=== PATIENT | female | born 1995 | race Caucasian/White ===

== ENCOUNTER 2016-05-14 08:53 | Emergency (ER) | payer MEDICAID ==
[2016-05-14 09:00] VITALS: RESP 16; O2SAT 97
--- NOTE | 2016-05-14 09:13 | EDPHY ---
General Narrative: CHIEF COMPLAINT: Right foot pain HISTORY OF PRESENT ILLNESS: walking up a set of stairs last night when she tripped, striking the right foot along the edge of the stair. She did note an injury along the right lateral aspect of the foot and the toes. No inversion or eversion injury. No hyper dorsiflexion or plantar flexion injury. Pain is primarily over the midfoot, worse over the lateral aspect of the right midfoot. There is no pain of the heel. No ankle tenderness. No rodrigues or knee pain. Moderate to severe pain. Worse with any palpation or weight-bearing. Improves at rest. It radiates up into the ankle. No lacerations or abrasions. No other associated complaints or modifying factors. PRIOR ORTHO INJURIES: None ESTABLISHED ORTHOPEDIST: none REVIEW OF SYSTEMS: Ten systems reviewed and are negative unless otherwise noted in the HPI EXAMINATION General Appearance: Alert, no distress Head: normocephalic, atraumatic Eyes: Pupils equal and round, no conjunctival pallor or injection Respiratory: No dyspnea or retractions. No distress Cardiovascular: Pulses normal throughout with symmetric DP and PT pulses are 2 +. Brisk cap refill all toes of the affected foot Back: non-tender, no bony abnormalities Neurological: A&O, sensory symmetric, strength symmetric Skin: Warm and dry, no rash. No laceration or abrasion. Mild contusion of the right 5th metatarsal. Extremities: Tenderness to palpation of the right mid foot over the 5th metatarsal. No deformity or crepitus. No tenderness of the right heel or ankle mortise. No tenderness of the right proximal fibula. Range of motion about the ankle and knee on the right is within normal limits and symmetric to the left. DIFFERENTIAL DIAGNOSES: Including but not limited to Contusion, sprain, strain, fracture, dislocation MDM: acute right midfoot tenderness, primarily over the 5th metatarsal. There was blunt trauma to this. She has difficulty ambulating thus I have ordered x-ray. No signs of trauma elsewhere. 9:30 a.m. x-ray has been reviewed by me has no acute fracture dislocation. Await for the official radiology report. Plan for postop shoe and crutches and referral to Orthopedics for definitive care. Weightbearing as tolerated, non weight- bearing if painful. 9:35 a.m. x-ray has been read as a proximal, equivocal fracture of the right 4th metatarsal involving the articular surface. I did discuss this with the patient. Due to the nature of the fracture will place her in a Jesse boot and provide crutches. She is to remain nonweightbearing on this until she sees Orthopedics for definitive care. We did discuss ice, elevation, anti- inflammatories and short course of pain medication. In addition I will provide a work note to allow her to have less ambulatory workload until seen by Orthopedics. Patient is comfortable with this plan and discharged home neurovascularly intact post [place] boot. ED Precautions: Worsening pain. Erythema, edema, cyanosis, pallor, paresthesia or anesthesia. SUPERVISION: This patient was independently evaluated without the aide of supervising physician. - History Smoking Status: Current some day smoker - Objective Vital Signs: Initial Vital Signs Temperature (C) 98.1 F 05/14/16 08:55 Heart Rate 79 05/14/16 08:55 Respiratory Rate 16 05/14/16 08:55 Blood Pressure 130/73 H 05/14/16 08:55 O2 Sat (%) 97 05/14/16 08:55 O2 Delivery Mode Room Air Allergies/Adverse Reactions: No Known Allergies Allergy (Unverified 05/14/16 08:55) Home Medications: Medication Instructions Recorded IBUPROFEN 05/14/16 traMADol [Ultram 50 mg (*)] 50 mg PO Q4 PRN #20 tab 05/14/16 Departure - Departure Disposition: Home, Routine, Self-Care Clinical Impression: Foot pain, right, Metatarsal stress fracture of right foot Condition: Good Instructions: Foot Sprain (ED) Additional Instructions: Nonweightbearing until seen by Orthopedics. Jesse boot while ambulatory with crutches. Ice, ibuprofen and pain medication as prescribed as needed. Return to ER for worsening pain, numbness or tingling, increasing swelling of the foot, change in coloration of the foot, weakness of the toes Referrals: NONE *PRIMARY CARE P,. [Primary Care Provider] - As per Instructions Brent Connor MD [Medical Doctor] - As per Instructions Stand Alone Forms: Work Limited Duty Prescriptions: traMADol [Ultram 50 mg (*)] 50 mg PO Q4 PRN #20 tab PRN Reason: Pain, Moderate
--- NOTE | 2016-05-14 09:33 | DX ---
Right Foot , Three History: Midfoot pain, post trauma, jammed foot into floor. Findings: Possible small proximal medial corner fracture at the base of the fourth metacarpal tarsal versus overlapping lucency from other bone margins. Alignment remains anatomic. Overall mineralizatio n is normal. Impression: Equivocal proximal articular surface fracture, fourth metatarsal. If it is clinically imp ortant to define this area accurately, noncontrast CT would be definitive.
[2016-05-14 09:55] VITALS: BP 119/80; PULSE 74; TEMP 97.2
== END 2016-05-14 09:55 | disposition home or self-care (01) ==
DX: S92.341A Displaced fracture of fourth metatarsal bone, right foot, initial encounter for closed fracture (principal); F17.200 Nicotine dependence, unspecified, uncomplicated; W18.49XA Other slipping, tripping and stumbling without falling, initial encounter; Y93.01 Activity, walking, marching and hiking
CPT/HCPCS: L4386

== ENCOUNTER 2016-07-29 00:57 | Emergency (ER) | payer MEDICAID ==
[2016-07-29 01:05] VITALS: TEMP 97.7; O2SAT 95
--- NOTE | 2016-07-29 02:22 | EDPHY ---
H & P Stated Complaint: CYST ON TOP OF BUTTOCK Time Seen by Provider: 07/29/16 01:33 HPI/ROS: Chief Complaint: Bump on back HPI: 20-year-old female presenting with several days of worsening small bump above her buttocks. It is red. It is tender. Does not have a history of the same. No fevers or chills. No abdominal pain. No rectal pain. ROS: 10 point Review of Systems is negative except as noted in the HPI. PMH: None Medications: None Allergies none Social History: No smoking, no alcohol, no recreational drug use Family History: non-contributory Physical Exam: Gen: Awake, Alert, No Distress HEENT: Nose: no rhinorrhea Eyes: PERRLA, EOMI Mouth: Moist mucosa Neck: Supple, no JVD Chest: nontender, lungs clear to auscultation Heart: S1, S2 normal, no murmur Abd: Soft, non-tender, no guarding Back: no CVA tenderness, no midline tenderness there is a fluctuant mass on the top of her gluteal fold consistent with a pilonidal abscess Ext: no edema, non-tender Skin: no rash Neuro: CN II-XII intact, Sensation grossly intact, Strength 5/5 in bilateral upper and lower extremities - Personal History LMP (Females 10-55): 15-21 Days Ago Current Tetanus/Diphtheria Vaccine: Yes Current Tetanus Diphtheria and Acellular Pertussis (TDAP): Yes - Medical/Surgical History Hx Asthma: No Hx Chronic Respiratory Disease: No Hx Diabetes: No Hx Cardiac Disease: No Hx Renal Disease: No Hx Cirrhosis: No Hx Alcoholism: No Hx HIV/AIDS: No Hx Splenectomy or Spleen Trauma: No Other PMH: tooth implant; FX FOOT - Social History Smoking Status: Current some day smoker Constitutional: Initial Vital Signs Temperature (C) 36.5 C 07/29/16 01:02 Heart Rate 57 L 07/29/16 01:02 Respiratory Rate 16 07/29/16 01:02 Blood Pressure 111/88 H 07/29/16 01:02 O2 Sat (%) 95 07/29/16 01:02 O2 Delivery Mode Room Air,Humidified Face Tent Allergies/Adverse Reactions: No Known Allergies Allergy (Unverified 07/29/16 01:04) Home Medications: Medication Instructions Recorded NK [No Known Home Meds] 07/29/16 Medical Decision Making Procedures: Procedure: Abscess drainage. The patient's abscess was located on the pilonidal region of the buttocks. I obtained verbal consent from the patient to drain the abscess who was informed about the possibility of bleeding and pain. The abscess was incised with a scalpel and a large amount of purulent drainage was expressed. I irrigated the wound and placed some packing. The patient tolerated the procedure well. The procedure was performed by myself. Departure - Departure Disposition: Home, Routine, Self-Care Clinical Impression: Pilonidal abscess Condition: Good Instructions: Pilonidal Cyst (ED) Additional Instructions: You may take hydrocodone as needed for pain. Follow up at [facility] in 2 days for reassessment and packing removal. Return to the emergency depart for increasing pain, fevers, chills, spreading redness, or any other concerns. Referrals: NONE *PRIMARY CARE P,. [Primary Care Provider] - As per Instructions [facility] [Clinic] - As per Instructions
[2016-07-29] MEDS ORDERED: HYDROCOD/APAP 5/325 PREPACK#6 BTL TAKEHOME ONE (02:37)
[2016-07-29 02:49] VITALS: BP 124/53; PULSE 67; RESP 14
== END 2016-07-29 02:48 | disposition home or self-care (01) ==
PROC: 0J993ZZ Drainage of Buttock Subcutaneous Tissue and Fascia, Percutaneous Approach (ICD-10-PCS; principal; 2016-07-29)
DX: L05.01 Pilonidal cyst with abscess (principal); F17.200 Nicotine dependence, unspecified, uncomplicated

== ENCOUNTER 2016-08-01 12:22 | Emergency (ER) | payer MEDICAID ==
[2016-08-01 12:28] VITALS: BP 110/69; PULSE 72; RESP 20; TEMP 97.3; O2SAT 98
--- NOTE | 2016-08-01 12:41 | EDPHY ---
H & P Time Seen by Provider: 08/01/16 12:33 HPI/ROS: CHIEF COMPLAINT: Recheck pilonidal cyst HISTORY OF PRESENT ILLNESS: 20-year-old female seen emergency department 3 days ago for complaints of pilonidal cyst at which time she had incision and drainage and told to return for recheck. PHYSICAL EXAM (Prior to examination, patient consented to physical exam, hands were washed and my usual and customary physical exam procedures followed) 1) GENERAL: Well-developed, well-nourished, alert and oriented. Appears to be in no acute distress. 2) HEAD: Normocephalic 3) HEENT: sclera anicteric 4) LUNGS: Breathing comfortably. 5) SKIN: the area at the cleft of the patient's buttock is packed, packing removed. Area appears to be healing appropriately with no new signs of infection, no fluctuance no further areas of drainage. No extension to the perianal region. Smoking Status: Current some day smoker Constitutional: Initial Vital Signs Temperature (C) 36.3 C 08/01/16 12:25 Heart Rate 72 08/01/16 12:25 Respiratory Rate 20 08/01/16 12:25 Blood Pressure 110/69 08/01/16 12:25 O2 Sat (%) 98 08/01/16 12:25 O2 Delivery Mode Room Air Allergies/Adverse Reactions: No Known Allergies Allergy (Verified 08/01/16 12:25) Home Medications: Medication Instructions Recorded [place] 5/325 (*) 08/01/16 MDM/Departure - MDM ED Course/Re-evaluation: This area is healing well. No indication for further incision and drainage or antibiotics at this time. Given the name of general surgeon for follow-up in the future. Usual and customary wound precautions and instructions provided. - Depart Disposition: Home, Routine, Self-Care Clinical Impression: Pilonidal cyst Condition: Good Instructions: Pilonidal Cyst (ED) Referrals: Shaw Dunn MD [Medical Doctor] - 5-7 days, call for appt. (Dr. Shaw Dunn is a general surgeon)
== END 2016-08-01 12:47 | disposition home or self-care (01) ==
DX: L05.01 Pilonidal cyst with abscess (principal); F17.200 Nicotine dependence, unspecified, uncomplicated
CPT/HCPCS: G0463

== ENCOUNTER 2016-09-25 20:17 | Emergency (ER) | payer MEDICAID ==
[2016-09-25] MEDS ORDERED: LET GEL TOPICAL 1 EA SYR TP ONE ×2 (21:02→21:03)
--- NOTE | 2016-09-25 21:18 | EDPHY ---
H & P Stated Complaint: R leg laceration hiking HPI/ROS: CHIEF COMPLAINT: Leg laceration HISTORY OF PRESENT ILLNESS: This is a 20-year-old student to cut her leg while hiking in [place] yesterday. She has been working hard to keep the wound clean since that occurred. She denies any associated numbness or weakness. She is not certain about her tetanus status. REVIEW OF SYSTEMS: A ten point review of systems was performed and is negative with the exception of the items mentioned in the HPI. - Personal History LMP (Females 10-55): 22-28 Days Ago Current Tetanus/Diphtheria Vaccine: No - Medical/Surgical History Hx Asthma: No Hx Chronic Respiratory Disease: No Hx Diabetes: No Hx Cardiac Disease: No Hx Renal Disease: No Hx Cirrhosis: No Hx Alcoholism: No Hx HIV/AIDS: No Hx Splenectomy or Spleen Trauma: No Other PMH: PSHx: tooth implant; FX FOOT. PMHx: denies - Social History Smoking Status: Current some day smoker Drug Use: None Additional Social History: She is a University student. - Physical Exam Exam: General Appearance: Alert. Vital signs reviewed. A focused exam was performed. Respiratory: Lungs are clear to auscultation. Cardiovascular: Regular rate and rhythm; no murmur, rub, or gallop. Skin: Warm and dry, no rashes on exposed skin, normal color. Extremities: 1.5 cm linear laceration, horizontally oriented, just distal to her right knee. The wound is clean. No active bleeding. Full active range of motion of the right knee. Neurovascularly intact. Neurological: Alert and oriented. Moving all four extremities easily and equally. Sensation is intact to light touch over the right lower extremity. Psychiatric: Normal affect. Constitutional: Initial Vital Signs Temperature (C) 36.9 C 09/25/16 20:36 Heart Rate 71 09/25/16 20:36 Respiratory Rate 16 09/25/16 20:36 Blood Pressure 110/87 H 09/25/16 20:36 O2 Sat (%) 98 09/25/16 20:36 O2 Delivery Mode Room Air Allergies/Adverse Reactions: No Known Allergies Allergy (Verified 08/01/16 12:25) Home Medications: Medication Instructions Recorded NK [No Known Home Meds] 09/25/16 Medical Decision Making Procedures: Procedure: Laceration repair. Verbal consent was obtained from the patient. The 1.5 cm laceration on the lower right leg was anesthetized in the usual fashion. The wound was irrigated , draped and explored to its base with a gloved finger. There were no deep structures involved. No tendon or muscle injury was identified. The wound was repaired with 4- 0 nylon, 3 interrupted stitches. The wound repair was single layer. The procedure was performed by myself. ED Course/Re-evaluation: This laceration occurred yesterday but the wound appears clean. After discussion with the patient we decided that I would go ahead and close the wound. She understands that there is a risk of infection. She will watch closely for any signs of infection. After consideration she has also determined that her tetanus is up-to-date, which seems likely given her age. Differential Diagnosis: This is a simple laceration with no evidence of nerve, muscle, or vascular injury. There are no signs of infection. No other injuries identified. - Data Points Medications Given: Discontinued Medications Tetracaine/Epinephrine/Lidocaine (Let Gel Topical) 1 ea TP EDNOW ONE Stop: 09/25/16 21:04 Last Admin: 09/25/16 21:04 Dose: 1 ea Departure - Departure Disposition: Home, Routine, Self-Care Clinical Impression: Laceration Condition: Good Instructions: Laceration (ED) Additional Instructions: As we discussed, there is some danger of infection from closing this laceration. However, it looks clean and dry and I feel that you can watch carefully for signs of infection--fever, redness, warmth, purulent drainage, increasing pain. If you have any concerns about of infection you should return immediately. The stitches should be taken out in 10 days. Referrals: [facility] [Outside] - As per Instructions
[2016-09-25 22:05] VITALS: BP 112/78; PULSE 74; RESP 18; TEMP 97.5; O2SAT 96
== END 2016-09-25 22:05 | disposition home or self-care (01) ==
PROC: 0HQKXZZ Repair Right Lower Leg Skin, External Approach (ICD-10-PCS; principal; 2016-09-25)
DX: S81.811A Laceration without foreign body, right lower leg, initial encounter (principal); F17.200 Nicotine dependence, unspecified, uncomplicated; X58.XXXA Exposure to other specified factors, initial encounter; Y93.01 Activity, walking, marching and hiking

== ENCOUNTER 2016-10-08 01:26 | Emergency (ER) | payer MEDICAID ==
[2016-10-08 01:32] VITALS: BP 116/90; PULSE 93; RESP 16; TEMP 97.5; O2SAT 94
--- NOTE | 2016-10-08 01:45 | EDPHY ---
H & P Stated Complaint: Pt tripped and hit head on car- lac on forehead/abrasion on knee HPI/ROS: HPI CHIEF COMPLAINT: Alcohol intoxication, head laceration HISTORY OF PRESENT ILLNESS: This patient 21-year-old female, otherwise healthy no medical problems, does not take any daily medications she presents emergency room by private vehicle with her roommate after great encouragement to come to the emergency room as she has a forehead laceration. 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 She decided after leaving the republican that she would get up on a car jump from 1 car to another. She fell off the car with head strike against the ground sustaining a right forehead laceration. Upon arrival here in the emergency room she is intoxicated smells of alcohol, slurring her speech. Horizontal beating nystagmus consistent with acute alcohol intoxication. Roommate at bedside. Unsure there is LOC. No vomiting. Past Medical History: Denies medical history Past Surgical History: Denies recent surgical history Social History: Alcohol this evening, denies illicit drugs or tobacco. [employer] student. Family History: Noncontributory ROS REVIEW OF SYSTEMS: A comprehensive 10 point review of systems is otherwise negative aside from elements mentioned in the history of present illness. Exam Constitutional smells of alcohol, intoxicated, triage nursing summary reviewed , vital signs reviewed, awake/alert. Eyes normal conjunctivae and sclera, EOMI, PERRLA. HENT head/neck: Neck atraumatic no midline cervical spine pain no step-offs. Right forehead 3 cm laceration present. moist mucus membranes, no epistaxis, neck supple/ no meningismus, no raccoon eyes. Respiratory clear to auscultation bilaterally, normal breath sounds, no respiratory distress, no wheezing. Cardiovascular rate normal, regular rhythm, no murmur, no edema, distal pulses normal. Gastrointestinal soft, non-tender, no rebound, no guarding, normal bowel sounds, no distension, no pulsatile mass. Genitourinary no CVA tenderness. Musculoskeletal no midline vertebral tenderness, full range of motion, no calf swelling, no tenderness of extremities, no meningismus, good pulses, neurovascularly intact. Skin pink, warm, & dry, no rash, skin atraumatic. Neurologic awake, alert and oriented x 3, AAOx3, moves all 4 extremities equally, motor intact, sensory intact, CN II-XII intact, normal cerebellar, normal vision, slurring of speech. Psychiatric normal mood/affect. Heme/Lymph/Immune no lymphadenopathy. Differential Diagnosis: Includes but is not limited acute alcohol intoxication , closed head injury, intracranial bleed, skull fracture, forehead laceration. Medical Decision Making: Plan for this patient CT head without contrast for trauma given alcohol intoxication and fall. Patient need the laceration repaired under sterile conditions and cleaned out. Patient tells me her stay tetanus shot is up-to-date Re-evaluation: Laceration Repair Procedure: Verbal Consent was obtained, Under sterile conditions, The patient had lidocaine with epinephrine used approximately 4ccs to local anesthetize the right forehead laceration 3 cm. Laceration. The wound was copiously irrigated with sterile fluid, the wound was explored for foreign bodies there were none visualized, the wound was explored with a sterile glove to the base. There are no deep structures involved, including no arterial injury. THREE 6.O prolene interrupted Sutures were placed in this patient's laceration. She had good close approximation of the wound edges. She Tolerated this well. Patient understands return emergency room if she develops any vomiting severe headache questions concerns about her sutures. Sutures need to be removed in [address] scan of the head without IV contrast for trauma The results of the study are negative for acute traumatic injury. The study was read by Dr. Upton. I viewed the images myself on the PACS system. [id number]: Patient resting no acute distress. CT unremarkable. Reason for CT head without contrast is alcohol intoxication, head trauma, hit head on concrete sustaining a head laceration. She understands no aspirin. Return emergency room if any worsening symptoms including severe headache, vomiting or fever. Source: Patient - Personal History LMP (Females 10-55): 22-28 Days Ago Current Tetanus/Diphtheria Vaccine: Unsure Current Tetanus Diphtheria and Acellular Pertussis (TDAP): Unsure Tetanus Vaccine Date: <10 years - Medical/Surgical History Hx Asthma: No Hx Chronic Respiratory Disease: No Hx Diabetes: No Hx Cardiac Disease: No Hx Renal Disease: No Hx Cirrhosis: No Hx Alcoholism: No Hx HIV/AIDS: No Hx Splenectomy or Spleen Trauma: No Other PMH: PSHx: tooth implant; FX FOOT. PMHx: denies - Social History Smoking Status: Current some day smoker Constitutional: Initial Vital Signs Temperature (C) 36.4 C 10/08/16 01:27 Heart Rate 93 10/08/16 01:27 Respiratory Rate 16 10/08/16 01:27 Blood Pressure 116/90 H 10/08/16 01:27 O2 Sat (%) 94 10/08/16 01:27 O2 Delivery Mode Room Air Allergies/Adverse Reactions: No Known Allergies Allergy (Verified 10/08/16 01:32) Home Medications: Medication Instructions Recorded NK [No Known Home Meds] 09/25/16 Departure - Departure Disposition: Home, Routine, Self-Care Clinical Impression: Alcohol intoxication Qualifiers: Complication of substance-induced condition: uncomplicated Qualified Code(s): F10.920 - Alcohol use, unspecified with intoxication, uncomplicated Head injury Qualifiers: Encounter type: initial encounter Qualified Code(s): S09.90XA - Unspecified injury of head, initial encounter Forehead laceration Qualifiers: Encounter type: initial encounter Qualified Code(s): S01.81XA - Laceration without foreign body of other part of head, initial encounter Condition: Good Instructions: Care For Your Stitches (ED), Laceration (ED), Concussion (ED), Head Injury (ED) Additional Instructions: 1.Keep your wound clean, dry and protected. 2. Your sutures need to be removed in 7 days please return here will remove them. 3. Watch for signs of infection this includes redness, swelling, drainage. Fever. 4. Do not go in pulls hot tubs, lakes, [place] until wound is healed Referrals: NONE *PRIMARY CARE P,. [Primary Care Provider] - As per Instructions
== END 2016-10-08 02:13 | disposition home or self-care (01) ==
PROC: 0HQ1XZZ Repair Face Skin, External Approach (ICD-10-PCS; principal; 2016-10-08)
DX: S01.81XA Laceration without foreign body of other part of head, initial encounter (principal); F10.920 Alcohol use, unspecified with intoxication, uncomplicated; F17.200 Nicotine dependence, unspecified, uncomplicated; W01.198A Fall on same level from slipping, tripping and stumbling with subsequent striking against other object, initial encounter; Y92.89 Other specified places as the place of occurrence of the external cause; Y99.8 Other external cause status; Y93.39 Activity, other involving climbing, rappelling and jumping off